=== PATIENT | male | born 1970 | race African-American/Black ===

== ENCOUNTER 2020-09-18 20:11 | Inpatient (IN) ==
[2020-09-18 21:55] LABS: Basophils % 0.6 % (0.0-0.8); Hematocrit 45.8 VOL% (42.0-52.0); Hemoglobin 15.8 GM/DL (14.0-18.0); Immature Granulocytes % 0.2 %; Immature Granulocytes Absolute 0.01 #; Lymphocytes # 1.1 10*3/uL (1.4-4.0); Lymphocytes % 23.9 % (21.2-54.2); Mean Corpuscular HGB Conc 34.5 GM/DL (32-36); Mean Corpuscular Volume 92.7 FL (87-102); Mean Platelet Volume 10.4 FL (9.6-12.0); Monocytes % 15.9 % (1.7-12.7); Neutrophils % 59.4 % (38.7-73.9); Platelet Count 203 T/CUMM (130-400); Red Blood Count 4.94 MC/CUMM (3.8-5.5); Red Cell Distribution Width 12.9 % (9.3-17.3); White Blood Count 4.7 T/CUMM (4-12)
[2020-09-18 22:06] LABS: INR 0.9; PT Patient Result 10.5 SECS (10.5-12.0); Partial Thromboplastin Time 28.3 SECS (23.9-33.8)
[2020-09-18 22:13] LABS: Albumin 4.1 G/DL (3.4-5.0); Calcium 9.3 MG/DL (8.5-10.1); Osmolality,Calculated 257.9 MOS/KG (273-304); Potassium 3.1 MMOL/L (3.5-5.1); Total Protein 8.5 G/DL (6.4-8.2)
[2020-09-18] MEDS ORDERED: ONDANSETRON 4 MG/2 ML VIAL IV STA (22:38)
[2020-09-18] MEDS ORDERED: MORPHINE 2 MG/1 ML SYRINGE IV STA (22:38)
[2020-09-18] MEDS ORDERED: SODIUM CHLORIDE 0.9% 1,000 ML IV STA (22:38)
[2020-09-18] MEDS ORDERED: hydrALAZINE 20 MG/1 ML VIAL IV STA (22:51)
[2020-09-18] MEDS ORDERED: hydrALAZINE 20 MG/1 ML VIAL ONE (22:51)
[2020-09-18 23:16] LABS: Band Neutrophils 3 % (0-10); Lymphocytes 23 % (20-55); Segmented Neutrophils 60 % (50-85); Total Cells Counted 100
[2020-09-18 23:17] LABS: Reactive Lymphocytes 2+
[2020-09-18 23:29] LABS: Platelet Estimate Normal
[2020-09-18] MEDS ORDERED: LABETALOL 20 MG/4 ML SYRINGE IV ONE (23:34)
[2020-09-18] MEDS ORDERED: LABETALOL 100 MG/20 ML VIAL IV STA (23:52)
[2020-09-19] MEDS ORDERED: MORPHINE 2 MG/1 ML SYRINGE IV STA (01:06)
[2020-09-19] MEDS ORDERED: ONDANSETRON 4 MG/2 ML VIAL IV STA (01:06)
[2020-09-19] MEDS ORDERED: MELATONIN 3 MG TABLET PO PRN (02:35)
[2020-09-19] MEDS ORDERED: DEXTROSE 50% 25 GM/50 ML VIAL IV PRN (02:42)
[2020-09-19] MEDS ORDERED: ACETAMINOPHEN 325 MG TABLET PO PRN ×2 (02:42→10:30)
[2020-09-19] MEDS ORDERED: GLUCAGON 1 MG VIAL IM PRN (02:42)
[2020-09-19] MEDS ORDERED: ONDANSETRON 4 MG/2 ML VIAL IV PRN (02:42)
[2020-09-19] MEDS ORDERED: MAGNESIUM SULF RIDER 2 GM/50 ML PREMIX IV PRN (02:49)
[2020-09-19] MEDS ORDERED: HYDROmorphone 2 MG/1 ML VIAL IV PRN (02:49)
[2020-09-19] MEDS ORDERED: MAGNESIUM SULF RIDER 4 GM/100 ML PREMIX IV PRN (02:49)
[2020-09-19] MEDS ORDERED: SODIUM CHLORIDE 0.9% 1,000 ML IV SCH (03:00)
[2020-09-19] MEDS: hydrALAZINE 20 MG/1 ML VIAL IV PRN ×3 (03:05→16:05)
[2020-09-19] MEDS ORDERED: LORazepam 2 MG/1 ML VIAL IV PRN ×2 (03:56)
[2020-09-19] MEDS: ENOXAPARIN 40 MG/0.4 ML SYRINGE SUBCUT SCH (03:57)
[2020-09-19 05:28] LABS: Basophils % 0.3 % (0.0-0.8); Hematocrit 43.5 VOL% (42.0-52.0); Hemoglobin 15.3 GM/DL (14.0-18.0); Immature Granulocytes % 0.3 %; Immature Granulocytes Absolute 0.02 #; Lymphocytes # 0.8 10*3/uL (1.4-4.0); Lymphocytes % 13.8 % (21.2-54.2); Mean Corpuscular HGB Conc 35.2 GM/DL (32-36); Mean Corpuscular Volume 92.6 FL (87-102); Mean Platelet Volume 10.7 FL (9.6-12.0); Monocytes % 15.1 % (1.7-12.7); Neutrophils % 70.5 % (38.7-73.9); Platelet Count 191 T/CUMM (130-400); Red Cell Distribution Width 12.9 % (9.3-17.3); White Blood Count 5.8 T/CUMM (4-12)
[2020-09-19] MEDS: POTASSIUM CHLORIDE RIDER 10 MEQ/100 ML PREMIX IV PRN ×4 (05:40→12:50)
[2020-09-19 06:02] LABS: Albumin 3.9 G/DL (3.4-5.0); Bilirubin,Total 1.3 MG/DL (0.20-1.00); Calcium 9.1 MG/DL (8.5-10.1); Osmolality,Calculated 253.2 MOS/KG (273-304); Potassium 3.2 MMOL/L (3.5-5.1); Total Protein 7.7 G/DL (6.4-8.2)
[2020-09-19 06:04] LABS: Ferritin 462.3 ng/ml (26-388)
[2020-09-19] MEDS ORDERED: MULTIVITAMIN INJ 10 ML in SODIUM CHLORIDE 0.9% 1,000 ML IV SCH (08:00)
[2020-09-19] MEDS: FAMOTIDINE 20 MG TABLET PO SCH ×2 (10:22→20:20)
[2020-09-19] MEDS: amLODIPine 10 MG TABLET PO SCH (10:22)
[2020-09-19] MEDS: CHOLECALCIFEROL 1,000 UNIT TABLET PO SCH (10:22)
[2020-09-19] MEDS: ZINC GLUCONATE 50 MG TABLET PO SCH (10:22)
[2020-09-19] MEDS: chlordiazePOXIDE 10 MG CAPSULE PO SCH ×3 (10:23→20:20)
[2020-09-19] MEDS: CETIRIZINE 10 MG TABLET PO SCH (10:23)
[2020-09-19] MEDS: ASCORBIC ACID 500 MG TABLET PO SCH ×2 (10:23→20:20)
[2020-09-19] MEDS ORDERED: methylPREDNISolone SOD SUC 125 MG/2 ML VIAL IV PRN (10:30)
[2020-09-19] MEDS ORDERED: DEXAMETHASONE 4 MG/1 ML VIAL IV ONE (10:30)
[2020-09-19] MEDS ORDERED: diphenhydrAMINE 50 MG/1 ML VIAL IV PRN ×2 (10:30)
[2020-09-19] MEDS ORDERED: MECLIZINE 25 MG TABLET PO PRN (10:30)
[2020-09-19] MEDS ORDERED: CASIRIVIMAB/IMDEVIMAB 1,200 MG in SODIUM CHLORIDE 0.9% 100 ML IV ONE ×2 (11:00→13:00)
[2020-09-19] MEDS: cloNIDine 0.1 MG TABLET PO PRN (16:06)
[2020-09-19] MEDS: hydrALAZINE 25 MG TABLET PO SCH (20:20)
[2020-09-20] MEDS: hydrALAZINE 20 MG/1 ML VIAL IV PRN (03:24)
[2020-09-20 06:42] LABS: Basophils % 0.1 % (0.0-0.8); Hematocrit 43.4 VOL% (42.0-52.0); Hemoglobin 14.5 GM/DL (14.0-18.0); Immature Granulocytes % 0.3 %; Immature Granulocytes Absolute 0.02 #; Lymphocytes # 1.2 10*3/uL (1.4-4.0); Lymphocytes % 17.5 % (21.2-54.2); Mean Corpuscular HGB Conc 33.4 GM/DL (32-36); Mean Corpuscular Volume 95.4 FL (87-102); Mean Platelet Volume 11.2 FL (9.6-12.0); Monocytes % 14.7 % (1.7-12.7); Neutrophils % 67.4 % (38.7-73.9); Platelet Count 183 T/CUMM (130-400); Red Blood Count 4.55 MC/CUMM (3.8-5.5); Red Cell Distribution Width 13.2 % (9.3-17.3)
[2020-09-20 07:06] LABS: Ferritin 413.1 ng/ml (26-388)
[2020-09-20 07:51] LABS: Albumin 3.3 G/DL (3.4-5.0); Bilirubin,Total 2.1 MG/DL (0.20-1.00); Calcium 9.1 MG/DL (8.5-10.1); Osmolality,Calculated 264.4 MOS/KG (273-304); Potassium 3.7 MMOL/L (3.5-5.1); Total Protein 7.2 G/DL (6.4-8.2)
[2020-09-20] MEDS: FAMOTIDINE 20 MG TABLET PO SCH ×2 (08:56→19:55)
[2020-09-20] MEDS: chlordiazePOXIDE 10 MG CAPSULE PO SCH ×2 (08:57→19:55)
[2020-09-20] MEDS: CETIRIZINE 10 MG TABLET PO SCH (08:57)
[2020-09-20] MEDS: CHOLECALCIFEROL 1,000 UNIT TABLET PO SCH (08:57)
[2020-09-20] MEDS: amLODIPine 10 MG TABLET PO SCH (08:57)
[2020-09-20] MEDS: hydrALAZINE 25 MG TABLET PO SCH ×2 (08:57→19:55)
[2020-09-20] MEDS: ASCORBIC ACID 500 MG TABLET PO SCH ×2 (08:57→19:55)
[2020-09-20] MEDS: ENOXAPARIN 40 MG/0.4 ML SYRINGE SUBCUT SCH (09:16)
[2020-09-20] MEDS: ZINC GLUCONATE 50 MG TABLET PO SCH (09:16)
[2020-09-20] MEDS: MULTIVITAMIN (CENTRUM) TABLET PO SCH (11:28)
[2020-09-20] MEDS: cloNIDine 0.1 MG TABLET PO PRN (16:03)
[2020-09-21 06:27] LABS: Basophils % 0.6 % (0.0-0.8); Eosinophils % 0.2 % (0.00-10.9); Hematocrit 41.2 VOL% (42.0-52.0); Hemoglobin 13.9 GM/DL (14.0-18.0); Immature Granulocytes % 0.2 %; Immature Granulocytes Absolute 0.01 #; Lymphocytes # 1.5 10*3/uL (1.4-4.0); Lymphocytes % 23.6 % (21.2-54.2); Mean Corpuscular HGB Conc 33.7 GM/DL (32-36); Mean Corpuscular Volume 96.7 FL (87-102); Mean Platelet Volume 11.5 FL (9.6-12.0); Monocytes % 14.2 % (1.7-12.7); Neutrophils % 61.2 % (38.7-73.9); Platelet Count 156 T/CUMM (130-400); Red Blood Count 4.26 MC/CUMM (3.8-5.5); Red Cell Distribution Width 13.2 % (9.3-17.3); White Blood Count 6.2 T/CUMM (4-12)
[2020-09-21 06:55] LABS: Anisocytosis 1+; Macrocytosis 1+; Platelet Estimate Normal
[2020-09-21 06:56] LABS: Albumin 3.3 G/DL (3.4-5.0); Bilirubin,Total 1.3 MG/DL (0.20-1.00); Calcium 9.4 MG/DL (8.5-10.1); Ferritin 381.6 ng/ml (26-388); Osmolality,Calculated 265.2 MOS/KG (273-304); Potassium 3.5 MMOL/L (3.5-5.1)
[2020-09-21] MEDS: ASCORBIC ACID 500 MG TABLET PO SCH ×2 (08:13→20:45)
[2020-09-21] MEDS: amLODIPine 10 MG TABLET PO SCH (08:13)
[2020-09-21] MEDS: CHOLECALCIFEROL 1,000 UNIT TABLET PO SCH (08:13)
[2020-09-21] MEDS: FAMOTIDINE 20 MG TABLET PO SCH ×2 (08:13→20:45)
[2020-09-21] MEDS: chlordiazePOXIDE 10 MG CAPSULE PO SCH ×2 (08:13→20:45)
[2020-09-21] MEDS: CETIRIZINE 10 MG TABLET PO SCH (08:14)
[2020-09-21] MEDS: MULTIVITAMIN (CENTRUM) TABLET PO SCH (08:14)
[2020-09-21] MEDS: ZINC GLUCONATE 50 MG TABLET PO SCH (08:14)
[2020-09-21] MEDS: hydrALAZINE 25 MG TABLET PO SCH ×2 (08:14→20:45)
[2020-09-21] MEDS: ENOXAPARIN 40 MG/0.4 ML SYRINGE SUBCUT SCH (08:15)
[2020-09-21] MEDS ORDERED: DEXAMETHASONE 4 MG TABLET PO SCH (09:00)
[2020-09-21] MEDS ORDERED: ENOXAPARIN 60 MG/0.6 ML SYRINGE SUBCUT SCH (09:30)
[2020-09-21 16:37] LABS: Bilirubin,Urine Negative (Negative); Blood, Urine Negative (Negative); Glucose,Urine (UA) Negative (Negative); Ketones,Urine Negative (Negative); Nitrite,Urine Negative (Negative); Protein,Urine Negative; RBC,Urine <1 /HPF (0-4); Urine Appearance CLEAR (Clear); Urine Color Yellow (Yellow); Urine Specific Gravity 1.004 (1.001-1.035); Urine Urobilinogen < 2.0 EU/DL (0.2-1.0)
[2020-09-21] MEDS: AZITHROMYCIN 250 MG TABLET PO SCH (16:40)
[2020-09-22 05:12] LABS: Basophils % 0.3 % (0.0-0.8); Hematocrit 41.8 VOL% (42.0-52.0); Hemoglobin 13.6 GM/DL (14.0-18.0); Immature Granulocytes % 0.3 %; Immature Granulocytes Absolute 0.02 #; Lymphocytes # 0.9 10*3/uL (1.4-4.0); Lymphocytes % 12.1 % (21.2-54.2); Mean Corpuscular HGB Conc 32.5 GM/DL (32-36); Mean Corpuscular Volume 98.6 FL (87-102); Mean Platelet Volume 11.7 FL (9.6-12.0); Monocytes % 10.5 % (1.7-12.7); Neutrophils % 76.8 % (38.7-73.9); Platelet Count 157 T/CUMM (130-400); Red Blood Count 4.24 MC/CUMM (3.8-5.5); Red Cell Distribution Width 13.2 % (9.3-17.3); White Blood Count 7.8 T/CUMM (4-12)
[2020-09-22 06:24] LABS: Bilirubin,Total 0.5 MG/DL (0.20-1.00); Calcium 9.5 MG/DL (8.5-10.1); Ferritin 397.7 ng/ml (26-388); Osmolality,Calculated 270.1 MOS/KG (273-304); Potassium 4.3 MMOL/L (3.5-5.1); Total Protein 7.2 G/DL (6.4-8.2)
[2020-09-22] MEDS ORDERED: chlordiazePOXIDE 10 MG CAPSULE PO SCH (09:00)
[2020-09-22] MEDS ORDERED: DEXAMETHASONE INJ 6 MG in SODIUM CHLORIDE 0.9% 50 ML IV SCH (09:00)
[2020-09-22] MEDS: CHOLECALCIFEROL 1,000 UNIT TABLET PO SCH (09:12)
[2020-09-22] MEDS: MULTIVITAMIN (CENTRUM) TABLET PO SCH (09:12)
[2020-09-22] MEDS: FAMOTIDINE 20 MG TABLET PO SCH (09:13)
[2020-09-22] MEDS: ZINC GLUCONATE 50 MG TABLET PO SCH (09:13)
[2020-09-22] MEDS: amLODIPine 10 MG TABLET PO SCH (09:13)
[2020-09-22] MEDS: hydrALAZINE 25 MG TABLET PO SCH (09:14)
[2020-09-22] MEDS: AZITHROMYCIN 250 MG TABLET PO SCH (09:14)
[2020-09-22] MEDS: ASCORBIC ACID 500 MG TABLET PO SCH (09:14)
[2020-09-22] MEDS: CETIRIZINE 10 MG TABLET PO SCH (09:15)
[2020-09-22] MEDS ORDERED: ENOXAPARIN 40 MG/0.4 ML SYRINGE SUBCUT SCH (09:30)
[2020-09-22 10:06] LABS: Ovalocytes Slight; Platelet Estimate Adequate; Polychromasia Slight
[2020-09-22 11:46] VITALS: BP 142/91
== END 2020-09-22 14:00 | disposition home or self-care (01) | DRG 438 ==
LOC: N.ED 20:11 → N.EDINP 09-19 01:24 → N.2E 09-19 03:09
PROVIDERS: ADMIT Internal Medicine; ATTEND Internal Medicine